=== PATIENT | female | born 1975 | race Caucasian/White ===

== ENCOUNTER 2016-10-23 | Emergency (ER) | payer OTHER ==
--- NOTE | 2016-10-23 08:07 | ED ---
Eye Problem HPI - General Chief complaint: Eye Problems Stated complaint: Red eye Time Seen by Provider: 10/23/16 07:47 Source: patient, family, RN notes reviewed Mode of arrival: ambulatory Limitations: no limitations - History of Present Illness Initial comments: This patient is a 41-year-old woman who presents to be evaluated for redness to the lateral aspect of her left eye. The patient states that this is been coming on over the course of last night and this morning. The patient has not noted any change in her vision. The patient states that there is a little bit of irritation but she denies any pain to the eye. The patient does state that since she was diagnosed with hypothyroidism she does find that she rubbed her eyes relatively frequently. Patient denies fever or chills, ocular discharge, change in vision, eye pain, previous history of ophthalmologic disease or family history. MD chief complaint: eye redness -: hour(s) Onset Description: gradual Location: left eye Place: home If Injury: none Eye Symptoms: itching Severity: mild Consistency: constant Associated Symptoms: none Treatments Prior to Arrival: none - Related Data Home Medications Medication Instructions Recorded Confirmed Levothyroxine Sodium [Synthroid] 112 mcg PO DAILY 05/23/16 10/23/16 Calcium Carbonate/Vitamin D3 1 - 2 tab PO DAILY 10/23/16 10/23/16 [Calcium 600-Vit D3 400 Caplet] Multivitamins, Thera [Multivitamin] 1 tab PO DAILY 10/23/16 10/23/16 Allergies Allergy/AdvReac Type Severity Reaction Status Date / Time No Known Allergies Allergy Verified 10/23/16 07:39 Review of Systems ROS Statement: Those systems with pertinent positive or pertinent negative responses have been documented in the HPI. ROS Other: All systems not noted in ROS Statement are negative. Constitutional: Denies: fever, chills Eyes: Reports: as per HPI. Denies: eye pain, eye discharge, vision change ENT: Denies: ear pain, throat pain, congestion Respiratory: Denies: cough, dyspnea Hematological/Lymphatic: Denies: easy bleeding Past Medical History Past Medical History: Thyroid Disorder History of Any Multi-Drug Resistant Organisms: None Reported Past Surgical History: No Surgical Hx Reported Past Psychological History: No Psychological Hx Reported Smoking Status: Never smoker Past Alcohol Use History: None Reported Past Drug Use History: None Reported General Exam Limitations: no limitations General appearance: alert, in no apparent distress Head exam: Present: atraumatic, normocephalic Eye exam: Present: other (There is moderate some conjunctival hemorrhage to the lateral aspect of the left eye. Remainder of the ophthalmologic exam is normal. Lids are normal. There is no conjunctival injection. The cornea is thin and clear. Anterior chamber is clear. Funduscopic exam is limited without dilation. ) Course Vital Signs 10/23/16 07:24 Temperature 97.8 F Pulse Rate 91 Respiratory 16 Rate Blood Pressure 116/59 O2 Sat by Pulse 97 Oximetry Medical Decision Making - Medical Decision Making Tonometry by the iCare device shows a pressure of 18. Disposition Clinical Impression: Subconjunctival hemorrhage of left eye Disposition: HOME SELF-CARE Condition: Good Instructions: Eye Lubricant (Into the eye), Subconjunctival Hemorrhage (ED) Additional Instructions: As we discussed, if any of the symptoms develop contact the gaming director and be seen, or return immediately to the emergency department. Referrals: Mar Wilson MD [Primary Care Provider] - 1-2 days Daphney Carlisle MD [STAFF PHYSICIAN] - 1-2 days
== END 2016-10-23 08:29 | disposition home or self-care (01) ==
CPT/HCPCS: 99282

== ENCOUNTER 2017-03-28 19:14 | Emergency (ER) | payer OTHER ==
[2017-03-28] MEDS ORDERED: SODIUM CHLORIDE 0.9% 1,000 ML IV STA ×2 (19:32)
[2017-03-28] MEDS ORDERED: HYDROmorphone 1 MG/ML 1 ML SYRINGE IVP STA (19:32)
[2017-03-28] MEDS ORDERED: ONDANSETRON 4 MG/2 ML VIAL IVP STA (19:32)
--- NOTE | 2017-03-28 19:45 | ED ---
Abdominal Pain HPI - General Chief Complaint: Abdominal Pain Stated Complaint: Abd Pain/Blood in stool Time Seen by Provider: 03/28/17 19:23 Source: patient, RN notes reviewed, old records reviewed Mode of arrival: ambulatory Limitations: no limitations - History of Present Illness Initial Comments: This is a 41-year-old female presenting to the emergency Department chief complaint of 4 weeks of diffuse abdominal pain. Patient reports that she's also noticed some blood in her stools which was worse over the past day. Patient states that she was recently tested for rheumatoid arthritis and had elevated rheumatoid factor. Patient reports that she generally feels sometimes short of breath and weak. She also complains of intermittent chest pain. Patient states that she's had normal urination. Denies any vomiting but feels nauseated. Patient states that the pain is over the entire abdomen but is worse in the left lower quadrant.Patient denies any recent fever, chills, shortness of breath, chest pain, back pain, vomiting, numbness or tingling, dysuria or hematuria, constipation or diarrhea, headaches or visual changes, or any other current symptoms - Related Data Home Medications Medication Instructions Recorded Confirmed Calcium Carbonate/Vitamin D3 1 - 2 tab PO DAILY 10/23/16 03/28/17 [Calcium 600-Vit D3 400 Caplet] Multivitamins, Thera [Multivitamin] 1 tab PO DAILY 10/23/16 03/28/17 Dexmethylphenidate HCl [Focalin Xr] 15 mg PO BID 03/28/17 03/28/17 Ferrous Sulfate [Feosol] 325 mg PO DAILY 03/28/17 03/28/17 Fluticasone Nasal [place] [Flonase 1 spray EA NOSTRIL HS 03/28/17 03/28/17 Nasal [place]] Hydrocortisone Cream 1 applic TOPICAL BID 03/28/17 03/28/17 [Hydrocortisone 2.5% Cream] Levothyroxine Sodium [Tirosint] 75 mcg PO MOTUWETHFRSA 03/28/17 03/28/17 Previous Rx's Medication Instructions Recorded Dicyclomine [Bentyl] 10 mg PO TID #15 capsule 03/28/17 Allergies Allergy/AdvReac Type Severity Reaction Status Date / Time No Known Allergies Allergy Verified 03/28/17 20:32 Review of Systems ROS Statement: Those systems with pertinent positive or pertinent negative responses have been documented in the HPI. ROS Other: All systems not noted in ROS Statement are negative. Past Medical History Past Medical History: Rheumatoid Arthritis (RA), Thyroid Disorder Additional Past Medical History / Comment(s): anemia, hypokalemia, shingles History of Any Multi-Drug Resistant Organisms: None Reported Past Surgical History: No Surgical Hx Reported Past Psychological History: No Psychological Hx Reported Smoking Status: Never smoker Past Alcohol Use History: None Reported Past Drug Use History: None Reported General Exam - General Exam Comments Initial Comments: Pleasant 41-year-old female. No acute distress. Limitations: no limitations General appearance: alert, in no apparent distress Head exam: Present: atraumatic, normocephalic, normal inspection Eye exam: Present: normal appearance, PERRL, EOMI. Absent: scleral icterus, conjunctival injection, periorbital swelling ENT exam: Present: normal exam, mucous membranes moist Neck exam: Present: normal inspection. Absent: tenderness, meningismus, lymphadenopathy Respiratory exam: Present: normal lung sounds bilaterally. Absent: respiratory distress, wheezes, rales, rhonchi, stridor Cardiovascular Exam: Present: regular rate, normal rhythm, normal heart sounds. Absent: systolic murmur, diastolic murmur, rubs, gallop, clicks GI/Abdominal exam: Present: soft, normal bowel sounds. Absent: distended, tenderness, guarding, rebound, rigid Extremities exam: Present: normal inspection, full ROM, normal capillary refill. Absent: tenderness, pedal edema, joint swelling, calf tenderness Back exam: Present: normal inspection Neurological exam: Present: alert, oriented X3, CN II-XII intact Psychiatric exam: Present: normal affect, normal mood Skin exam: Present: warm, dry, intact, normal color. Absent: rash Course Vital Signs 03/28/17 03/28/17 19:16 21:28 Temperature 97.9 F 97.6 F Pulse Rate 83 67 Respiratory 16 18 Rate Blood Pressure 110/71 95/50 O2 Sat by Pulse 95 97 Oximetry Medical Decision Making - Medical Decision Making This is a 41-year-old female presenting to the emergency Department chief complaint of 4 weeks of diffuse abdominal pain. Patient reports that she's also noticed some blood in her stools which was worse over the past day. Patient states that she was recently tested for rheumatoid arthritis and had elevated rheumatoid factor. Patient reports that she generally feels sometimes short of breath and weak. She also complains of intermittent chest pain. Patient states that she's had normal urination. Denies any vomiting but feels nauseated. Patient states that the pain is over the entire abdomen but is worse in the left lower quadrant. Patient's lab work was reviewed and negative for any significant acute process. EKG and abdominal x-ray were negative for any abnormal maladies. Patient was informed of these results. Also fecal occult was negative for any blood. Patient has been advised to follow-up closely with primary care provider. - Lab Data Result diagrams: 03/28/17 19:50 03/28/17 19:50 Lab Results 03/28/17 03/28/17 03/28/17 Range/Units 19:50 19:50 19:50 WBC 5.2 (3.8-10.6) k/uL RBC 4.33 (3.80-5.40) m/uL Hgb 13.1 (11.4-16.0) gm/dL Hct 36.8 (34.0-46.0) % MCV 84.9 (80.0-100.0) fL MCH 30.1 (25.0-35.0) pg MCHC 35.5 (31.0-37.0) g/dL RDW 15.5 (11.5-15.5) % Plt Count 387 (150-450) k/uL Neutrophils % 49 % Lymphocytes % 37 % Monocytes % 6 % Eosinophils % 5 % Basophils % 1 % Neutrophils # 2.6 (1.3-7.7) k/uL Lymphocytes # 1.9 (1.0-4.8) k/uL Monocytes # 0.3 (0-1.0) k/uL Eosinophils # 0.2 (0-0.7) k/uL Basophils # 0.0 (0-0.2) k/uL PT (9.0-12.0) sec INR (<1.1) APTT (22.0-30.0) sec Sodium 140 (137-145) mmol/L Potassium 3.5 (3.5-5.1) mmol/L Chloride 104 (98-107) mmol/L Carbon Dioxide 25 (22-30) mmol/L Anion Gap 11 mmol/L BUN 6 L (7-17) mg/dL Creatinine 0.64 (0.52-1.04) mg/dL Est GFR (MDRD) Af Amer >60 (>60 ml/min/1.73 sqM) Est GFR (MDRD) Non-Af >60 (>60 ml/min/1.73 sqM) Glucose 95 (74-99) mg/dL Calcium 9.7 (8.4-10.2) mg/dL Total Bilirubin 1.1 (0.2-1.3) mg/dL AST 25 (14-36) U/L ALT 31 (9-52) U/L Alkaline Phosphatase 61 (38-126) U/L Total Creatine Kinase 70 (30-135) U/L CK-MB (CK-2) 0.2 (0.0-2.4) ng/mL CK-MB (CK-2) Rel Index 0.3 Troponin I <0.012 (0.000-0.034) ng/mL Total Protein 7.1 (6.3-8.2) g/dL Albumin 4.1 (3.5-5.0) g/dL Amylase 63 (30-110) U/L Lipase 58 (23-300) U/L Urine Color Urine Appearance (Clear) Urine pH (5.0-8.0) Ur Specific [place] (1.001-1.035) Urine Protein (Negative) Urine Glucose (UA) (Negative) Urine Ketones (Negative) Urine Blood (Negative) Urine Nitrite (Negative) Urine Bilirubin (Negative) Urine Urobilinogen (<2.0) mg/dL Ur Leukocyte Esterase (Negative) Urine RBC (0-5) /hpf Urine WBC (0-5) /hpf Ur Squamous Epith Cells (0-4) /hpf Urine Bacteria (None) /hpf Stool Occult Blood (Negative) 03/28/17 03/28/17 03/28/17 Range/Units 19:50 19:50 20:35 WBC (3.8-10.6) k/uL RBC (3.80-5.40) m/uL Hgb (11.4-16.0) gm/dL Hct (34.0-46.0) % MCV (80.0-100.0) fL MCH (25.0-35.0) pg MCHC (31.0-37.0) g/dL RDW (11.5-15.5) % Plt Count (150-450) k/uL Neutrophils % % Lymphocytes % % Monocytes % % Eosinophils % % Basophils % % Neutrophils # (1.3-7.7) k/uL Lymphocytes # (1.0-4.8) k/uL Monocytes # (0-1.0) k/uL Eosinophils # (0-0.7) k/uL Basophils # (0-0.2) k/uL PT 11.1 (9.0-12.0) sec INR 1.1 (<1.1) APTT 25.9 (22.0-30.0) sec Sodium (137-145) mmol/L Potassium (3.5-5.1) mmol/L Chloride (98-107) mmol/L Carbon Dioxide (22-30) mmol/L Anion Gap mmol/L BUN (7-17) mg/dL Creatinine (0.52-1.04) mg/dL Est GFR (MDRD) Af Amer (>60 ml/min/1.73 sqM) Est GFR (MDRD) Non-Af (>60 ml/min/1.73 sqM) Glucose (74-99) mg/dL Calcium (8.4-10.2) mg/dL Total Bilirubin (0.2-1.3) mg/dL AST (14-36) U/L ALT (9-52) U/L Alkaline Phosphatase (38-126) U/L Total Creatine Kinase (30-135) U/L CK-MB (CK-2) (0.0-2.4) ng/mL CK-MB (CK-2) Rel Index Troponin I (0.000-0.034) ng/mL Total Protein (6.3-8.2) g/dL Albumin (3.5-5.0) g/dL Amylase (30-110) U/L Lipase (23-300) U/L Urine Color Light Yellow Urine Appearance Clear (Clear) Urine pH 6.5 (5.0-8.0) Ur Specific [place] 1.004 (1.001-1.035) Urine Protein Negative (Negative) Urine Glucose (UA) Negative (Negative) Urine Ketones Negative (Negative) Urine Blood Trace H (Negative) Urine Nitrite Negative (Negative) Urine Bilirubin Negative (Negative) Urine Urobilinogen <2.0 (<2.0) mg/dL Ur Leukocyte Esterase Negative (Negative) Urine RBC 1 (0-5) /hpf Urine WBC 1 (0-5) /hpf Ur Squamous Epith Cells 1 (0-4) /hpf Urine Bacteria Rare H (None) /hpf Stool Occult Blood Negative (Negative) 03/28/17 19:45 EKG shows normal sinus rhythm. Ventricular rate 72 bpm. VT interval 144 ms. QRS duration 88 ms. QT/QTC 392/429 ms. Normal axis deviation. No evidence of ST elevation or T-wave inversion. No evidence of atrial or ventricular arrhythmias. - Radiology Data Radiology results: report reviewed CXR and KLUB x-ray are negative for any acute process. Disposition Clinical Impression: History of bloody stools, Abdominal pain Disposition: HOME SELF-CARE Condition: Good Instructions: Abdominal Pain (ED) Additional Instructions: Patient advised to rest, increase fluids. Follow up with the GI specialist. Return to the emergency department if any alarming signs or symptoms occur. Prescriptions: Dicyclomine [Bentyl] 10 mg PO TID #15 capsule Referrals: Mar Wilson MD [Primary Care Provider] - 1-2 days Maria Elena Chan MD [STAFF PHYSICIAN] - 1-2 days Time of Disposition: 21:13
[2017-03-28 20:03] LABS: Basophils % (A) 1 %; CH 30.5; CHCM 36.2; Eosinophils # (A) 0.2 k/uL (0-0.7); Eosinophils % (A) 5 %; HCT 36.8 % (34.0-46.0); HDW 2.66; HGB 13.1 gm/dL (11.4-16.0); Luc # (Auto) 0.14; Luc % (Auto) 3; Lymphocytes # (A) 1.9 k/uL (1.0-4.8); Lymphocytes % (A) 37 %; MCH 30.1 pg (25.0-35.0); MCHC 35.5 g/dL (31.0-37.0); MCV 84.9 fL (80.0-100.0); Mean Platelet Volume 6.1; Monocytes # (A) 0.3 k/uL (0-1.0); Monocytes % (A) 6 %; Neutrophils # (A) 2.6 k/uL (1.3-7.7); Neutrophils % (A) 49 %; RBC 4.33 m/uL (3.80-5.40); RDW 15.5 % (11.5-15.5); WBC 5.2 k/uL (3.8-10.6); WBC (Perox) 4.94
[2017-03-28 20:12] LABS: ALT 31 U/L (9-52); AST 25 U/L (14-36); Alkaline Phosphatase 61 U/L (38-126); Amylase 63 U/L (30-110); Anion Gap 11 mmol/L; Blood Urea Nitrogen 6 mg/dL (7-17); Calcium 9.7 mg/dL (8.4-10.2); Carbon Dioxide 25 mmol/L (22-30); Chloride 104 mmol/L (98-107); Glucose 95 mg/dL (74-99); Non-African American GFR(MDRD) >60 (>60 ml/min/1.73 sqM); Potassium 3.5 mmol/L (3.5-5.1); Sodium 140 mmol/L (137-145); Total Bilirubin 1.1 mg/dL (0.2-1.3); Total Protein 7.1 g/dL (6.3-8.2)
[2017-03-28 20:17] LABS: INR 1.1 (<1.1); Partial Thromboplastin Time 25.9 sec (22.0-30.0); Prothrombin Time 11.1 sec (9.0-12.0)
[2017-03-28 20:21] LABS: Appearance,Urine Clear (Clear); Bacteria,Urine Rare /hpf; Bilirubin,Urine Negative (Negative); Creatine Kinase 70 U/L (30-135); Glucose,Urine (UA) Negative (Negative); Ketones,Urine Negative (Negative); Leukocyte Esterase,Urine Negative (Negative); Nitrite,Urine Negative (Negative); PH, Urine 6.5 (5.0-8.0); Particle Count 810; Protein,Urine Negative (Negative); RBC,Urine 1 /hpf (0-5); Specific Gravity,Urine 1.004 (1.001-1.035); Squamous Epithelial Cell,Urine 1 /hpf (0-4); UA Billing (MACRO vs. MICRO) MICRO; Urobilinogen,Urine <2.0 mg/dL (<2.0); WBC,Urine 1 /hpf (0-5)
[2017-03-28 20:34] LABS: Creatine Kinase MB 0.2 ng/mL (0.0-2.4); Troponin I <0.012 ng/mL (0.000-0.034)
--- NOTE | 2017-03-28 20:38 | XR ---
Abdomen HISTORY: Pain, blood in stool Frontal view of the abdomen on 2 images There is no bowel obstruction or pneumoperitoneum. Bone mineralization is maintained. Entire pelvis i s not included on the exam. IMPRESSION: No abnormality evident within the limitation of the exam
--- NOTE | 2017-03-28 20:38 | XR ---
EXAMINATION TYPE: XR chest 2V DATE OF EXAM: 03/28/2017 COMPARISON: Abdomen same date HISTORY: Abdominal pain, shortness of breath TECHNIQUE: Frontal and lateral views of the chest are obtained. FINDINGS: There is no focal air space opacity, pleural effusion, or pneumothorax seen. The cardiac silhouette size is within normal limits. The osseous structures are intact. IMPRESSION: No acute cardiopulmonary process.
[2017-03-28 21:30] VITALS: BP 95/50; PULSE 67; RESP 18; TEMP 97.6
== END 2017-03-28 21:30 | disposition home or self-care (01) ==
LOC: EC 19:14
DX: R10.84 Generalized abdominal pain (principal); R06.02 Shortness of breath; R53.1 Weakness; R11.0 Nausea; M06.9 Rheumatoid arthritis, unspecified; E07.9 Disorder of thyroid, unspecified; D64.9 Anemia, unspecified; Z53.20 Procedure and treatment not carried out because of patient's decision for unspecified reasons; Z79.899 Other long term (current) drug therapy
CPT/HCPCS: 36415; 71020; 74000; 80053; 81001; 82150; 82272; 82550; 82553; 83690; 84484; 85025; 85610; 85730; 93005; 96360; 96361; 99284

== ENCOUNTER 2017-05-08 17:16 | Emergency (ER) | payer OTHER ==
[2017-05-08 17:28] VITALS: BP 115/81; PULSE 74; RESP 18; TEMP 99.3
[2017-05-08] MEDS ORDERED: diphenhydrAMINE 50 MG/ML 1 ML VIAL IVP STA (17:41)
[2017-05-08] MEDS ORDERED: predniSONE 50 MG TAB PO STA (17:41)
[2017-05-08] MEDS ORDERED: FAMOTIDINE 20 MG TAB PO STA (17:41)
--- NOTE | 2017-05-08 17:47 | ED ---
Allergic Reaction HPI - General Chief complaint: Allergic Reaction Stated complaint: poss allergic reaction to new meds Time Seen by Provider: 05/08/17 17:34 Source: patient, family, RN notes reviewed Mode of arrival: ambulatory Limitations: no limitations - History of Present Illness Initial Comments: This is a 42-year-old female with a history of lupus Sjogren's syndrome and rheumatoid arthritis who just started a prescription of plaquenil and azulfidine and started developing redness to her skin and itchiness. Also burning sensation. She denies any difficulty swallowing or shortness of breath. She's never had these medication before but also never had this reaction before. She has no other known ALLERGIES. MD Complaint: allergic reaction - Related Data Home Medications Medication Instructions Recorded Confirmed Calcium Carbonate/Vitamin D3 1 - 2 tab PO DAILY 10/23/16 03/28/17 [Calcium 600-Vit D3 400 Caplet] Multivitamins, Thera [Multivitamin] 1 tab PO DAILY 10/23/16 03/28/17 Dexmethylphenidate HCl [Focalin Xr] 15 mg PO BID 03/28/17 03/28/17 Ferrous Sulfate [Feosol] 325 mg PO DAILY 03/28/17 03/28/17 Fluticasone Nasal [place] [Flonase 1 spray EA NOSTRIL HS 03/28/17 03/28/17 Nasal [place]] Hydrocortisone Cream 1 applic TOPICAL BID 03/28/17 03/28/17 [Hydrocortisone 2.5% Cream] Levothyroxine Sodium [Tirosint] 75 mcg PO MOTUWETHFRSA 03/28/17 03/28/17 Previous Rx's Medication Instructions Recorded Dicyclomine [Bentyl] 10 mg PO TID #15 capsule 03/28/17 predniSONE 20 mg PO BID #10 tab 05/08/17 Allergies Allergy/AdvReac Type Severity Reaction Status Date / Time No Known Allergies Allergy Verified 05/08/17 17:28 Review of Systems ROS Statement: Those systems with pertinent positive or pertinent negative responses have been documented in the HPI. ROS Other: All systems not noted in ROS Statement are negative. Past Medical History Past Medical History: Rheumatoid Arthritis (RA), Thyroid Disorder Additional Past Medical History / Comment(s): anemia, hypokalemia, shingles, colitis, vitalago, lupus, chograns History of Any Multi-Drug Resistant Organisms: None Reported Past Surgical History: Orthopedic Surgery Additional Past Surgical History / Comment(s): meniscus repair Past Psychological History: Anxiety Smoking Status: Never smoker Past Alcohol Use History: None Reported Past Drug Use History: None Reported General Exam - General Exam Comments Initial Comments: This is a well-developed well-nourished awake alert oriented 3 female Limitations: no limitations General appearance: alert, anxious Head exam: Present: atraumatic, normocephalic, normal inspection Eye exam: Present: normal appearance, PERRL, EOMI. Absent: scleral icterus, conjunctival injection, periorbital swelling ENT exam: Present: normal exam, mucous membranes moist Neck exam: Present: normal inspection. Absent: tenderness, meningismus, lymphadenopathy Respiratory exam: Present: normal lung sounds bilaterally. Absent: respiratory distress, wheezes, rales, rhonchi, stridor Cardiovascular Exam: Present: regular rate, normal rhythm, normal heart sounds. Absent: systolic murmur, diastolic murmur, rubs, gallop, clicks GI/Abdominal exam: Present: normal bowel sounds. Absent: distended, tenderness , guarding, rebound, rigid Extremities exam: Present: normal inspection, full ROM, normal capillary refill. Absent: tenderness, pedal edema, joint swelling, calf tenderness Back exam: Present: normal inspection Neurological exam: Present: alert, oriented X3, CN II-XII intact Psychiatric exam: Present: normal affect, normal mood Skin exam: Present: warm, dry, intact, erythema, urticaria. Absent: normal color, rash Course Vital Signs 05/08/17 17:23 Temperature 99.3 F Pulse Rate 74 Respiratory 18 Rate Blood Pressure 115/81 O2 Sat by Pulse 98 Oximetry Medical Decision Making - Medical Decision Making Reevaluation patient finds that she is much improved with less itching less redness to her skin. She is in satisfactory condition for discharge. She'll be placed on a short course of oral prednisone. She was advised to take over- the-counter Pepcid and Benadryl as needed also warned about hot environments. She will call her doctor tomorrow and see had a proceed with her medications. She will continue with her enema tonight. Disposition Clinical Impression: Allergic reaction, Adverse reaction to drug Disposition: HOME SELF-CARE Condition: Good Instructions: Allergies (ED), General Allergic Reaction (ED) Prescriptions: predniSONE 20 mg PO BID #10 tab Referrals: Mar Wilson MD [Primary Care Provider] - 1-2 days
[2017-05-08] MEDS ORDERED: diphenhydrAMINE 25 MG CAP PO STA (17:51)
== END 2017-05-08 18:40 | disposition home or self-care (01) ==
LOC: EC 17:16
DX: L29.8 Other pruritus (principal); T37.0X5A Adverse effect of sulfonamides, initial encounter; T37.8X5A Adverse effect of other specified systemic anti-infectives and antiparasitics, initial encounter; E07.9 Disorder of thyroid, unspecified; M06.9 Rheumatoid arthritis, unspecified; F41.9 Anxiety disorder, unspecified; Z79.899 Other long term (current) drug therapy
CPT/HCPCS: 99283; J7512

== ENCOUNTER 2018-02-02 22:40 | Emergency (ER) | payer OTHER ==
[2018-02-02 22:48] VITALS: TEMP 97.1
--- NOTE | 2018-02-02 23:02 | ED ---
General Adult HPI - General Chief complaint: Weakness Stated complaint: low BP,lethargic Time Seen by Provider: 02/02/18 23:01 Source: patient Mode of arrival: ambulatory Limitations: no limitations - History of Present Illness Initial comments: Glenny is a 42 yo female with PMH of colitis and hypothyroid who presents to the ED today for evaluation of generalized fatigue. Patient reports that on Saturday she developed nausea and vomiting, she was evaluated in the outside emergency department she was advised that she had hypo-kalemia and was discharged home with potassium supplementation and Zofran. Patient ports that she did potassium yesterday and today but has not taken any doses of Zofran. Patient reports that when she woke today she didn't feel very well but felt well enough to go to work. She took her home medications and went to work. She began to feel faint and thought it was because she needed to eat, she states that she ate and had some ensure but continued to not feel well so she decided to lay down for a while. Upon getting home patient reports that she just felt completely unwell. She states that she feels as though her body hollow. She states that she feels like the inside of her body is shaking though she is not shaking. She states that she doesn't feel nervous that she feels like she should be nervous but she doesn't know why. Patient denies any fevers, chills, chest pain, shortness of breath. She reports feeling nauseated but has been able to eat her usual diet throughout the day today without episodes of vomiting. Patient reports that she had 2 bowel movements today, she states that she typically only has one bowel movement daily so this is somewhat atypical for her. She denies any abdominal pain. She denies any dysuria or hematuria. - Related Data Home Medications Medication Instructions Recorded Confirmed Calcium Carbonate/Vitamin D3 1 - 2 tab PO DAILY 10/23/16 02/02/18 [Calcium 600-Vit D3 400 Caplet] Multivitamins, Thera [Multivitamin] 1 tab PO DAILY 10/23/16 02/02/18 Dexmethylphenidate HCl [Focalin Xr] 15 mg PO BID 03/28/17 03/28/17 Levothyroxine Sodium [Tirosint] 75 mcg PO MOTUWETHFRSA 03/28/17 02/02/18 Acyclovir [Zovirax] 200 mg PO 02/02/18 Dexmethylphenidate HCl [Focalin Xr] 15 mg PO 02/02/18 Allergies Allergy/AdvReac Type Severity Reaction Status Date / Time Sulfa (Sulfonamide Allergy Rash/Hives Verified 02/02/18 22:48 Antibiotics) Review of Systems ROS Statement: Those systems with pertinent positive or pertinent negative responses have been documented in the HPI. ROS Other: All systems not noted in ROS Statement are negative. Past Medical History Past Medical History: Rheumatoid Arthritis (RA), Thyroid Disorder Additional Past Medical History / Comment(s): anemia, hypokalemia, shingles, colitis, vitalago History of Any Multi-Drug Resistant Organisms: None Reported Past Surgical History: Orthopedic Surgery Additional Past Surgical History / Comment(s): L meniscus repair Past Psychological History: ADD/ADHD, Anxiety, PTSD Smoking Status: Never smoker Past Alcohol Use History: None Reported Past Drug Use History: None Reported General Exam Limitations: no limitations Course Vital Signs 02/02/18 02/02/18 22:43 23:20 Temperature 97.1 F L Pulse Rate 55 L 82 Respiratory 20 18 Rate Blood Pressure 131/77 117/76 O2 Sat by Pulse 100 98 Oximetry Medical Decision Making - Medical Decision Making Patient was seen and evaluated, vital signs were reviewed, history was obtained from the patient and her at bedside Patient is hemodynamically stable, mildly bradycardic History and physical exam are nonspecific, labs were ordered Labs reveal elevated TSH as well as hypokalemia Patient reports she has been compliant with her oral thyroid medication, she reports that she takes it every morning on an empty stomach and does not take any other medications aside from her focalin for 4 hours. She reports she hasn' t established patient relationship with and a current urologist Dr. Merrill whom she will call tomorrow for follow-up on her elevated TSH level Upon reevaluation the patient was resting comfortably in bed. States that she feels comfortable being discharged home with the plan to follow up with her primary care physician and call her funeral pre arrangement counselor tomorrow for further recommendations. All questions pertaining to care were answered the best my ability patient was discharged home in stable condition. - Lab Data Result diagrams: 02/02/18 23:38 02/02/18 23:38 Lab Results 02/02/18 02/02/18 02/02/18 Range/Units 23:38 23:38 23:38 WBC 6.5 (3.8-10.6) k/uL RBC 4.09 (3.80-5.40) m/uL Hgb 11.6 (11.4-16.0) gm/dL Hct 32.7 L (34.0-46.0) % MCV 80.0 (80.0-100.0) fL MCH 28.4 (25.0-35.0) pg MCHC 35.4 (31.0-37.0) g/dL RDW 14.6 (11.5-15.5) % Plt Count 534 H (150-450) k/uL Neutrophils % 58 % Lymphocytes % 33 % Monocytes % 6 % Eosinophils % 1 % Basophils % 0 % Neutrophils # 3.7 (1.3-7.7) k/uL Lymphocytes # 2.1 (1.0-4.8) k/uL Monocytes # 0.4 (0-1.0) k/uL Eosinophils # 0.1 (0-0.7) k/uL Basophils # 0.0 (0-0.2) k/uL Sodium 143 (137-145) mmol/L Potassium 3.3 L (3.5-5.1) mmol/L Chloride 101 (98-107) mmol/L Carbon Dioxide 30 (22-30) mmol/L Anion Gap 12 mmol/L BUN 8 (7-17) mg/dL Creatinine 0.60 (0.52-1.04) mg/dL Est GFR (CKD-EPI)AfAm >90 (>60 ml/min/1.73 sqM) Est GFR (CKD-EPI)NonAf >90 (>60 ml/min/1.73 sqM) Glucose 86 (74-99) mg/dL Calcium 9.7 (8.4-10.2) mg/dL Total Bilirubin 0.5 (0.2-1.3) mg/dL AST 34 (14-36) U/L ALT 43 (9-52) U/L Alkaline Phosphatase 81 (38-126) U/L Total Protein 6.8 (6.3-8.2) g/dL Albumin 3.7 (3.5-5.0) g/dL TSH 10.800 H (0.465-4.680) mIU/L Urine Color Urine Appearance (Clear) Urine pH (5.0-8.0) Ur Specific [place] (1.001-1.035) Urine Protein (Negative) Urine Glucose (UA) (Negative) Urine Ketones (Negative) Urine Blood (Negative) Urine Nitrite (Negative) Urine Bilirubin (Negative) Urine Urobilinogen (<2.0) mg/dL Ur Leukocyte Esterase (Negative) Urine RBC (0-5) /hpf Urine WBC (0-5) /hpf Ur Squamous Epith Cells (0-4) /hpf Urine Bacteria (None) /hpf Urine Mucus (None) /hpf Urine HCG, Qual Not Detected (Not Detectd) 02/02/18 Range/Units 23:38 WBC (3.8-10.6) k/uL RBC (3.80-5.40) m/uL Hgb (11.4-16.0) gm/dL Hct (34.0-46.0) % MCV (80.0-100.0) fL MCH (25.0-35.0) pg MCHC (31.0-37.0) g/dL RDW (11.5-15.5) % Plt Count (150-450) k/uL Neutrophils % % Lymphocytes % % Monocytes % % Eosinophils % % Basophils % % Neutrophils # (1.3-7.7) k/uL Lymphocytes # (1.0-4.8) k/uL Monocytes # (0-1.0) k/uL Eosinophils # (0-0.7) k/uL Basophils # (0-0.2) k/uL Sodium (137-145) mmol/L Potassium (3.5-5.1) mmol/L Chloride (98-107) mmol/L Carbon Dioxide (22-30) mmol/L Anion Gap mmol/L BUN (7-17) mg/dL Creatinine (0.52-1.04) mg/dL Est GFR (CKD-EPI)AfAm (>60 ml/min/1.73 sqM) Est GFR (CKD-EPI)NonAf (>60 ml/min/1.73 sqM) Glucose (74-99) mg/dL Calcium (8.4-10.2) mg/dL Total Bilirubin (0.2-1.3) mg/dL AST (14-36) U/L ALT (9-52) U/L Alkaline Phosphatase (38-126) U/L Total Protein (6.3-8.2) g/dL Albumin (3.5-5.0) g/dL TSH (0.465-4.680) mIU/L Urine Color Light Yellow Urine Appearance Clear (Clear) Urine pH 7.5 (5.0-8.0) Ur Specific [place] 1.005 (1.001-1.035) Urine Protein Negative (Negative) Urine Glucose (UA) Negative (Negative) Urine Ketones Negative (Negative) Urine Blood Moderate H (Negative) Urine Nitrite Negative (Negative) Urine Bilirubin Negative (Negative) Urine Urobilinogen <2.0 (<2.0) mg/dL Ur Leukocyte Esterase Negative (Negative) Urine RBC 8 H (0-5) /hpf Urine WBC 3 (0-5) /hpf Ur Squamous Epith Cells 1 (0-4) /hpf Urine Bacteria Rare H (None) /hpf Urine Mucus Rare H (None) /hpf Urine HCG, Qual (Not Detectd) Disposition Clinical Impression: Hypothyroid, Hypokalemia Disposition: HOME SELF-CARE Condition: Good Instructions: Hypokalemia (ED), Hypothyroidism (ED) Additional Instructions: Call Dr Merrill's office tomorrow to discuss elevated TSH levels Is patient prescribed a controlled substance at d/c from ED?: No Referrals: Mar Wilson MD [Primary Care Provider] - 1-2 days Eliel Merrill MD [REFERRING] - 1-2 days Time of Disposition: 00:50
[2018-02-02 23:21] VITALS: RESP 18
[2018-02-02] MEDS ORDERED: ONDANSETRON 4 MG/2 ML VIAL IVP STA (23:21)
[2018-02-02] MEDS ORDERED: SODIUM CHLORIDE 0.9% 1,000 ML IV ONE (23:21)
[2018-02-02 23:55] LABS: Basophils % (A) 0 %; Eosinophils # (A) 0.1 k/uL (0-0.7); Eosinophils % (A) 1 %; HCT 32.7 % (34.0-46.0); HGB 11.6 gm/dL (11.4-16.0); Lymphocytes # (A) 2.1 k/uL (1.0-4.8); Lymphocytes % (A) 33 %; MCH 28.4 pg (25.0-35.0); MCHC 35.4 g/dL (31.0-37.0); Mean Platelet Volume 6.2; Monocytes # (A) 0.4 k/uL (0-1.0); Monocytes % (A) 6 %; Neutrophils # (A) 3.7 k/uL (1.3-7.7); Neutrophils % (A) 58 %; Platelet Count 534 k/uL (150-450); RBC 4.09 m/uL (3.80-5.40); RDW 14.6 % (11.5-15.5); WBC 6.5 k/uL (3.8-10.6)
[2018-02-03] LABS: ALT 43 U/L (9-52); AST 34 U/L (14-36); Albumin 3.7 g/dL (3.5-5.0); Alkaline Phosphatase 81 U/L (38-126); Anion Gap 12 mmol/L; Blood Urea Nitrogen 8 mg/dL (7-17); Calcium 9.7 mg/dL (8.4-10.2); Carbon Dioxide 30 mmol/L (22-30); Chloride 101 mmol/L (98-107); Glucose 86 mg/dL (74-99); Potassium 3.3 mmol/L (3.5-5.1); Sodium 143 mmol/L (137-145); Total Bilirubin 0.5 mg/dL (0.2-1.3); Total Protein 6.8 g/dL (6.3-8.2)
[2018-02-03 00:05] LABS: Appearance,Urine Clear (Clear); Bacteria,Urine Rare /hpf; Bilirubin,Urine Negative (Negative); Blood,Urine Moderate (Negative); Color,Urine Light Yellow; Glucose,Urine (UA) Negative (Negative); Ketones,Urine Negative (Negative); Leukocyte Esterase,Urine Negative (Negative); Mucus,Urine Rare /hpf; Nitrite,Urine Negative (Negative); PH, Urine 7.5 (5.0-8.0); Protein,Urine Negative (Negative); RBC,Urine 8 /hpf (0-5); Specific Gravity,Urine 1.005 (1.001-1.035); Squamous Epithelial Cell,Urine 1 /hpf (0-4); Urobilinogen,Urine <2.0 mg/dL (<2.0); WBC,Urine 3 /hpf (0-5)
[2018-02-03] MEDS ORDERED: POTASSIUM CHLORIDE ER 20 MEQ TAB.ER PO STA (00:32)
[2018-02-03 00:58] LABS: Amphetamine Screen,Urine Not Detected (NotDetected); Barbiturate Screen,Urine Not Detected (NotDetected); Benzodiazepines Screen,Urine Not Detected (NotDetected); Cocaine Screen,Urine Not Detected (NotDetected); Methadone Screen, Urine Not Detected (NotDetected); Opiate Screen,Urine Not Detected (NotDetected); Oxycodone Screen, Urine Not Detected (NotDetected); Phencyclidine Screen,Urine Not Detected (NotDetected); Tricyclic Antidepressant,Urine Not Detected (NotDetected); Urn Cannabinoid Scrn Not Detected (NotDetected)
[2018-02-03 01:05] LABS: T4, Free (Free Thyroxine) 1.14 ng/dL (0.78-2.19)
[2018-02-03 01:19] VITALS: BP 117/56; PULSE 66
== END 2018-02-03 01:17 | disposition home or self-care (01) ==
LOC: EC 22:40
DX: E03.9 Hypothyroidism, unspecified (principal); E87.6 Hypokalemia; R00.1 Bradycardia, unspecified; R11.0 Nausea; D64.9 Anemia, unspecified; F90.9 Attention-deficit hyperactivity disorder, unspecified type; F41.9 Anxiety disorder, unspecified; F43.10 Post-traumatic stress disorder, unspecified; Z79.899 Other long term (current) drug therapy; Z88.2 Allergy status to sulfonamides
CPT/HCPCS: 36415; 84439; 80053; 84443; 85025; 81001; 81025; 80306; 99284; 96374; 96361; J2405

== ENCOUNTER 2019-10-22 06:52 | Emergency (ER) | payer BC ==
[2019-10-22 07:06] VITALS: BP 113/83; PULSE 85; RESP 18; TEMP 97.4
--- NOTE | 2019-10-22 07:34 | ED ---
General Adult HPI - General Chief complaint: Urogenital Stated complaint: Blood in Urine Time Seen by Provider: 10/22/19 07:08 Source: patient, RN notes reviewed Mode of arrival: ambulatory Limitations: no limitations - History of Present Illness Initial comments: 44-year-old female with a past medical history of anemia, hypokalemia, shingles, colitis presents to the emergency determine for a chief complaint of hematuria. Patient states that this morning she woke up and urinated and noticed there was blood in the toilet. States that she has had some lower abdominal discomfort since that time. However she denies any significant pain. Denies any burning with urination. Denies any rectal bleeding. States that the hematuria has resolved. Denies any flank pain. Does admit to history of ulcerative colitis but states that the bleeding was not rectal and she does not have any pain consistent with a flareup.Patient has no other complaints at this time including shortness of breath, chest pain, abdominal pain, nausea or vomiting, headache, or visual changes. - Related Data Home Medications Medication Instructions Recorded Confirmed Calcium Carbonate/Vitamin D3 1 - 2 tab PO DAILY 10/23/16 02/02/18 [Calcium 600-Vit D3 400 Caplet] Multivitamins, Thera [Multivitamin] 1 tab PO DAILY 10/23/16 02/02/18 Dexmethylphenidate HCl [Focalin Xr] 15 mg PO BID 03/28/17 03/28/17 Levothyroxine Sodium [Tirosint] 75 mcg PO MOTUWETHFRSA 03/28/17 02/02/18 Acyclovir [Zovirax] 200 mg PO 02/02/18 Dexmethylphenidate HCl [Focalin Xr] 15 mg PO 02/02/18 Previous Rx's Medication Instructions Recorded Cephalexin [Keflex] 500 mg PO Q8HR 7 Days #21 cap 10/22/19 Allergies Allergy/AdvReac Type Severity Reaction Status Date / Time Sulfa (Sulfonamide Allergy Rash/Hives Verified 02/02/18 22:48 Antibiotics) Review of Systems ROS Statement: Those systems with pertinent positive or pertinent negative responses have been documented in the HPI. ROS Other: All systems not noted in ROS Statement are negative. Past Medical History Past Medical History: Rheumatoid Arthritis (RA), Thyroid Disorder Additional Past Medical History / Comment(s): anemia, hypokalemia, shingles, colitis, vitalago History of Any Multi-Drug Resistant Organisms: None Reported Past Surgical History: Orthopedic Surgery Additional Past Surgical History / Comment(s): L meniscus repair Past Psychological History: ADD/ADHD, Anxiety, PTSD Smoking Status: Never smoker Past Alcohol Use History: None Reported Past Drug Use History: None Reported General Exam Limitations: no limitations General appearance: alert, in no apparent distress Head exam: Present: atraumatic, normocephalic, normal inspection Eye exam: Present: normal appearance, PERRL, EOMI. Absent: scleral icterus, conjunctival injection, periorbital swelling ENT exam: Present: normal exam, mucous membranes moist Neck exam: Present: normal inspection, full ROM. Absent: tenderness, meningismus, lymphadenopathy Respiratory exam: Present: normal lung sounds bilaterally. Absent: respiratory distress, wheezes, rales, rhonchi, stridor Cardiovascular Exam: Present: regular rate, normal rhythm, normal heart sounds. Absent: systolic murmur, diastolic murmur, rubs, gallop, clicks GI/Abdominal exam: Present: soft, normal bowel sounds. Absent: distended, tenderness (Nontender abdomen), guarding, rebound, rigid Back exam: Absent: CVA tenderness (R), CVA tenderness (L) Course Vital Signs 10/22/19 06:59 Temperature 97.4 F L Pulse Rate 85 Respiratory 18 Rate Blood Pressure 113/83 O2 Sat by Pulse 99 Oximetry Medical Decision Making - Medical Decision Making Vitals are stable. Patient presents for one episode of hematuria. No difficulty urinating. No fevers or chills. No flank pain. Minor suprapubic discomfort. Nontender. Urinalysis revealed 8 red blood cells with 11 white blood cells. Given white blood cells, hematuria, and superpubic discomfort patient be treated for urinary tract infection and culture will be ordered. I discussed following up on culture results. I discussed follow up with primary care as soon as possible to ensure resolution of blood and urine. I discussed that she may need a urology referral if this does not resolve. Patient will return here to the emergency department for any worsening symptoms including flank pain, fevers, inability to urinate, or any other symptoms, these were discussed with her. - Lab Data Lab Results 10/22/19 10/22/19 Range/Units 07:20 07:20 Urine Color Yellow Urine Appearance Cloudy H (Clear) Urine pH 5.5 (5.0-8.0) Ur Specific [place] 1.027 (1.001-1.035) Urine Protein Trace H (Negative) Urine Glucose (UA) Negative (Negative) Urine Ketones Negative (Negative) Urine Blood Small H (Negative) Urine Nitrite Negative (Negative) Urine Bilirubin Negative (Negative) Urine Urobilinogen <2.0 (<2.0) mg/dL Ur Leukocyte Esterase Large H (Negative) Urine RBC 8 H (0-5) /hpf Urine WBC 11 H (0-5) /hpf Ur Squamous Epith Cells 4 (0-4) /hpf Calcium Oxalate Crystal Moderate H (None) /hpf Urine Mucus Few H (None) /hpf Urine HCG, Qual Not Detected (Not Detectd) Disposition Clinical Impression: Hematuria Disposition: HOME SELF-CARE Condition: Good Instructions (If sedation given, give patient instructions): Urinary Tract Infection in Women (ED), Hematuria (ED) Additional Instructions: Please take antibiotic as directed. Please follow-up with your primary care doctor to ensure resolution of blood in the urine. If this does not resolve he may require urology referral. If you have any worsening symptoms or are unable to urinate return to the emergency department. Prescriptions: Cephalexin [Keflex] 500 mg PO Q8HR 7 Days #21 cap Is patient prescribed a controlled substance at d/c from ED?: No Referrals: Mar Wilson MD [Primary Care Provider] - 1-2 days Time of Disposition: 08:15
[2019-10-22 07:39] LABS: Appearance,Urine Cloudy (Clear); Bilirubin,Urine Negative (Negative); Blood,Urine Small (Negative); Calcium Oxalate Crystals,Urine Moderate /hpf; Color,Urine Yellow; Glucose,Urine (UA) Negative (Negative); Ketones,Urine Negative (Negative); Leukocyte Esterase,Urine Large (Negative); Mucus,Urine Few /hpf; Nitrite,Urine Negative (Negative); PH, Urine 5.5 (5.0-8.0); Protein,Urine Trace (Negative); RBC,Urine 8 /hpf (0-5); Specific Gravity,Urine 1.027 (1.001-1.035); Squamous Epithelial Cell,Urine 4 /hpf (0-4); Urobilinogen,Urine <2.0 mg/dL (<2.0); WBC,Urine 11 /hpf (0-5)
== END 2019-10-22 08:30 | disposition home or self-care (01) ==
LOC: EC 06:52
DX: R31.9 Hematuria, unspecified (principal); E07.9 Disorder of thyroid, unspecified; F90.9 Attention-deficit hyperactivity disorder, unspecified type; Z79.890 Hormone replacement therapy; Z79.899 Other long term (current) drug therapy; Z88.2 Allergy status to sulfonamides
CPT/HCPCS: 81001; 81025; 87086; 99283

== ENCOUNTER → 2020-04-28 | Outpatient (CLI) | payer BC ==
--- NOTE | 2020-05-17 10:21 | EM ---
EVENT MONITOR EVENT MONITOR: The event monitor shows: 1. Sinus rhythm. 2. Sinus tachycardia. 3. No arrhythmias. MMODL / IJN: [id number] /
== END | disposition home or self-care (01) ==
LOC: RADECHMAIN 12:14
PROVIDERS: ATTEND Family Medicine
DX: R00.1 Bradycardia, unspecified (principal)
CPT/HCPCS: 93270

== ENCOUNTER 2020-07-11 23:20 | Emergency (ER) | payer BC ==
--- NOTE | 2020-07-11 23:55 | ED ---
General Adult HPI - General Chief complaint: Chest Pain Stated complaint: Headache Time Seen by Provider: 07/11/20 23:49 Source: EMS Mode of arrival: EMS Limitations: no limitations - History of Present Illness Initial comments: Glenny a 45-year-old female with extensive past medical history who presents the ER today via ambulance with a multitude of complaints. Patient reports that she's been having a headache for 2 days duration, not the worse headache of her life, not sudden in onset, not associated with any focal neurologic deficits. She reports she has frequent headaches like this but they don't usually last this long. Patient states only medication she can take his children's liquid Tylenol she did take some yesterday with no relief. She is not taking anything else for his headache. She does not see neurology for headaches. Patient also reports that throughout the day today she's had intermittent chest pain and palpitations, she has a hard time describing this but states that something that she experiences all the time. Patient also complains of diffuse myalgias. Patient states that she has these problems due to having fluctuations in her potassium and iron levels. - Related Data Home Medications Medication Instructions Recorded Confirmed Calcium Carbonate/Vitamin D3 1 - 2 tab PO DAILY 10/23/16 02/02/18 [Calcium 600-Vit D3 400 Caplet] Multivitamins, Thera [Multivitamin] 1 tab PO DAILY 10/23/16 02/02/18 Dexmethylphenidate HCl [Focalin Xr] 15 mg PO BID 03/28/17 03/28/17 Levothyroxine Sodium [Tirosint] 75 mcg PO MOTUWETHFRSA 03/28/17 02/02/18 Acyclovir [Zovirax] 200 mg PO 02/02/18 Dexmethylphenidate HCl [Focalin Xr] 15 mg PO 02/02/18 Previous Rx's Medication Instructions Recorded Cephalexin [Keflex] 500 mg PO Q8HR 7 Days #21 cap 10/22/19 Allergies Allergy/AdvReac Type Severity Reaction Status Date / Time Sulfa (Sulfonamide Allergy Rash/Hives Verified 07/11/20 23:27 Antibiotics) Review of Systems ROS Statement: Those systems with pertinent positive or pertinent negative responses have been documented in the HPI. ROS Other: All systems not noted in ROS Statement are negative. Past Medical History Past Medical History: Rheumatoid Arthritis (RA), Thyroid Disorder Additional Past Medical History / Comment(s): anemia, hypokalemia, shingles, co litis, vitalago History of Any Multi-Drug Resistant Organisms: None Reported Past Surgical History: Orthopedic Surgery Additional Past Surgical History / Comment(s): L meniscus repair Past Psychological History: ADD/ADHD, Anxiety, PTSD Smoking Status: Never smoker Past Alcohol Use History: None Reported Past Drug Use History: None Reported General Exam - General Exam Comments Initial Comments: Physical Exam GENERAL: Patient is well-developed and well-nourished. Patient is nontoxic and well-hydrated and is in no distress. HENT: Normocephalic, Atraumatic. meningeal signs EYES: PERRL, EOMI PULMONARY: Unlabored respirations. clear to auscultation bilaterally CARDIOVASCULAR: RRR Warm and well perfused extremities ABDOMEN: Non-distended SKIN: No rashes or bruising : Deferred NEUROLOGIC: Alert and oriented Normal speech Normal gait MUSCULOSKELETAL: Moving all extremities with no apparent injury PSYCHIATRIC: No SI/HI Limitations: no limitations Course Vital Signs 07/11/20 07/12/20 07/12/20 23:22 01:06 02:00 Temperature 98.5 F Pulse Rate 61 87 72 Respiratory 18 20 18 Rate Blood Pressure 125/94 105/78 100/73 O2 Sat by Pulse 98 97 97 Oximetry 07/12/20 02:46 Temperature 97.7 F Pulse Rate 77 Respiratory 18 Rate Blood Pressure 105/73 O2 Sat by Pulse 97 Oximetry EKG Findings - EKG Comments: EKG Findings:: EKG was obtained due to complaint of chest pain, EKG was obtained at 2332, rate is 56 rhythm is sinus bradycardia normal axis, normal intervals, FL 162, QS 92, QTc [address] elevations or depressions no evidence of acute ischemia or infarction Medical Decision Making - Medical Decision Making she was seen and evaluated history was obtained from the patient and at bedside Labs and imaging were obtained EKG is nonischemic Chest x-ray is unremarkable Labs are unremarkable Patient's headache was treated with Reglan and Benadryl Upon reevaluation patient was sleeping comfortably, she woke and states that her headache had improved she like to be discharged home. She was advised her labs are normal, potassium is normal. Advised that we do not check iron levels in the emergency department but she can follow with her primary care physician for this. I encouraged the patient and to follow with neurology for recurrent headaches. - Lab Data Result diagrams: 07/11/20 23:54 07/11/20 23:54 Lab Results 07/11/20 07/11/20 07/11/20 Range/Units 23:54 23:54 23:54 WBC 4.3 (3.8-10.6) k/uL RBC 4.12 (3.80-5.40) m/uL Hgb 11.5 (11.4-16.0) gm/dL Hct 33.8 L (34.0-46.0) % MCV 82.1 (80.0-100.0) fL MCH 27.8 (25.0-35.0) pg MCHC 33.8 (31.0-37.0) g/dL RDW 15.7 H (11.5-15.5) % Plt Count 373 (150-450) k/uL Neutrophils % 47 % Lymphocytes % 40 % Monocytes % 7 % Eosinophils % 3 % Basophils % 1 % Neutrophils # 2.0 (1.3-7.7) k/uL Lymphocytes # 1.7 (1.0-4.8) k/uL Monocytes # 0.3 (0-1.0) k/uL Eosinophils # 0.1 (0-0.7) k/uL Basophils # 0.0 (0-0.2) k/uL PT 10.6 (9.0-12.0) sec INR 1.0 (<1.2) APTT 24.0 (22.0-30.0) sec Sodium 139 (137-145) mmol/L Potassium 3.6 (3.5-5.1) mmol/L Chloride 104 (98-107) mmol/L Carbon Dioxide 30 (22-30) mmol/L Anion Gap 5 mmol/L BUN 13 (7-17) mg/dL Creatinine 0.59 (0.52-1.04) mg/dL Est GFR (CKD-EPI)AfAm >90 (>60 ml/min/1.73 sqM) Est GFR (CKD-EPI)NonAf >90 (>60 ml/min/1.73 sqM) Glucose 104 H (74-99) mg/dL Calcium 9.1 (8.4-10.2) mg/dL Magnesium 2.0 (1.6-2.3) mg/dL Total Bilirubin 0.7 (0.2-1.3) mg/dL AST 34 (14-36) U/L ALT 23 (4-34) U/L Alkaline Phosphatase 72 (38-126) U/L Troponin I (0.000-0.034) ng/mL Total Protein 6.6 (6.3-8.2) g/dL Albumin 3.8 (3.5-5.0) g/dL 07/11/20 Range/Units 23:54 WBC (3.8-10.6) k/uL RBC (3.80-5.40) m/uL Hgb (11.4-16.0) gm/dL Hct (34.0-46.0) % MCV (80.0-100.0) fL MCH (25.0-35.0) pg MCHC (31.0-37.0) g/dL RDW (11.5-15.5) % Plt Count (150-450) k/uL Neutrophils % % Lymphocytes % % Monocytes % % Eosinophils % % Basophils % % Neutrophils # (1.3-7.7) k/uL Lymphocytes # (1.0-4.8) k/uL Monocytes # (0-1.0) k/uL Eosinophils # (0-0.7) k/uL Basophils # (0-0.2) k/uL PT (9.0-12.0) sec INR (<1.2) APTT (22.0-30.0) sec Sodium (137-145) mmol/L Potassium (3.5-5.1) mmol/L Chloride (98-107) mmol/L Carbon Dioxide (22-30) mmol/L Anion Gap mmol/L BUN (7-17) mg/dL Creatinine (0.52-1.04) mg/dL Est GFR (CKD-EPI)AfAm (>60 ml/min/1.73 sqM) Est GFR (CKD-EPI)NonAf (>60 ml/min/1.73 sqM) Glucose (74-99) mg/dL Calcium (8.4-10.2) mg/dL Magnesium (1.6-2.3) mg/dL Total Bilirubin (0.2-1.3) mg/dL AST (14-36) U/L ALT (4-34) U/L Alkaline Phosphatase (38-126) U/L Troponin I <0.012 (0.000-0.034) ng/mL Total Protein (6.3-8.2) g/dL Albumin (3.5-5.0) g/dL Disposition Clinical Impression: Headache Disposition: HOME SELF-CARE Condition: Stable Additional Instructions: As we discussed you can follow up with neurology for chronic headaches Your labs were normal today, follow up with primary care doctor for re- evaluation later this week Return to the ER for any standing or development of new or concerning symptoms Is patient prescribed a controlled substance at d/c from ED?: No Referrals: Mar Wilson MD [Primary Care Provider] - 1-2 days
[2020-07-12 00:02] LABS: Basophils % (A) 1 %; Eosinophils # (A) 0.1 k/uL (0-0.7); Eosinophils % (A) 3 %; HCT 33.8 % (34.0-46.0); HGB 11.5 gm/dL (11.4-16.0); Lymphocytes # (A) 1.7 k/uL (1.0-4.8); Lymphocytes % (A) 40 %; MCH 27.8 pg (25.0-35.0); MCHC 33.8 g/dL (31.0-37.0); MCV 82.1 fL (80.0-100.0); Mean Platelet Volume 6.3; Monocytes # (A) 0.3 k/uL (0-1.0); Monocytes % (A) 7 %; Neutrophils % (A) 47 %; Platelet Count 373 k/uL (150-450); RBC 4.12 m/uL (3.80-5.40); RDW 15.7 % (11.5-15.5); WBC 4.3 k/uL (3.8-10.6)
[2020-07-12] MEDS ORDERED: ONDANSETRON 4 MG/2 ML VIAL IVP STA (00:05)
[2020-07-12 00:10] LABS: Prothrombin Time 10.6 sec (9.0-12.0)
[2020-07-12 00:13] LABS: ALT 23 U/L (4-34); AST 34 U/L (14-36); African American GFR (CKD) >90 (>60 ml/min/1.73 sqM); Albumin 3.8 g/dL (3.5-5.0); Alkaline Phosphatase 72 U/L (38-126); Anion Gap 5 mmol/L; Blood Urea Nitrogen 13 mg/dL (7-17); Calcium 9.1 mg/dL (8.4-10.2); Carbon Dioxide 30 mmol/L (22-30); Chloride 104 mmol/L (98-107); Glucose 104 mg/dL (74-99); Non-African American GFR(CKD) >90 (>60 ml/min/1.73 sqM); Potassium 3.6 mmol/L (3.5-5.1); Sodium 139 mmol/L (137-145); Total Bilirubin 0.7 mg/dL (0.2-1.3); Total Protein 6.6 g/dL (6.3-8.2)
--- NOTE | 2020-07-12 00:26 | XR ---
EXAMINATION TYPE: XR chest 2V DATE OF EXAM: 07/12/2020 COMPARISON: 03/28/2017 HISTORY: Chest pain TECHNIQUE: FINDINGS: Heart and mediastinum are normal. Lungs are clear. Diaphragm is normal. Bony thorax is inta ct. IMPRESSION: Normal chest. No change.
[2020-07-12] MEDS ORDERED: diphenhydrAMINE 50 MG/ML 1 ML VIAL IVP STA (01:16)
[2020-07-12] MEDS ORDERED: METOCLOPRAMIDE 5 MG/ML 2 ML VIAL IVP STA (01:16)
[2020-07-12 02:05] VITALS: RESP 18
[2020-07-12 02:47] VITALS: BP 105/73; PULSE 77; TEMP 97.7
== END 2020-07-12 02:48 | disposition home or self-care (01) ==
LOC: EC 23:20
DX: R51 Headache (principal); R07.9 Chest pain, unspecified; R00.2 Palpitations; E07.9 Disorder of thyroid, unspecified; Z79.890 Hormone replacement therapy; Z79.899 Other long term (current) drug therapy; Z88.2 Allergy status to sulfonamides
CPT/HCPCS: 36415; 93005; 80053; 83735; 84484; 85025; 85610; 85730; 71046; 99285; 96374; 96375 ×2; J1200; J2765; J2405